=== PATIENT | female | born 1960 | race Caucasian/White ===

== ENCOUNTER 2024-01-19 09:00 | Outpatient (CLI) | payer OTHER, SELFPAY ==
--- NOTE | ~2024-01-19 | XR_ITS ---
XR ribs RT 2V w CXR 2V Ordering provider: Zachary Gan PA-C History: 63 years Female with . R07.81 - Pleurodynia . Comparison: February 05, 2016 FINDINGS: MEDIASTINUM: The cardiac silhouette is not enlarged. LUNGS: No infiltrates, effusions or pneumothorax. OTHER: No free air under the diaphragm. IMPRESSION: No acute cardiopulmonary pathology. Reviewed, dictated and finalized at location A.
== END 2024-01-19 09:01 ==
LOC: MICIMG 09:02
PROVIDERS: PCP Physician Assistant; Visit Provider Physician Assistant
DX: R07.81 Pleurodynia (principal)
CPT/HCPCS: 71046; 71100

== ENCOUNTER 2024-10-04 20:14 | Emergency (ER) | payer OTHER, SELFPAY ==
--- NOTE | ~2024-10-04 | XR_ITS ---
EXAMINATION: XR chest 1V portable Exam Date/Time: 10/04/2024 21:25 HOME SERVICE DEMONSTRATOR HISTORY: cough Comparison: 01/19/2024. RESULT: Lines, tubes, and devices: None. Lungs and pleura: Clear. Cardiomediastinal silhouette: Stable. Other: No acute osseous or upper abdominal finding. IMPRESSION: No acute cardiopulmonary process. Reviewed, dictated and finalized at location K. SERVICE DEMONSTRATOR
--- OUTSIDE RECORDS SUMMARY | 2024-10-04 20:16 | XMS_ITS | Patient Health Summary ---
Author Organization [facility] Address [address] [place] [address] Care Team Providers Care Trumpet Player Name Role Phone Leon Hanna MD Primary Care Provider [phone] Note from [facility],non-owned Affiliates and Associated Physician Practices is amultiple site organization consisting of ambulatory clinics and hospital sitesin [place], [place], [place] and [place]. This disclosure is being madepursuant to the Care Everywhere program and may not contain all information available regarding this patient. Last updated 18.[facility] Social History Tobacco Use Types Packs/Day Years Used Date Smoking Tobacco: Never Assessed Sex and Gender Information Value Date Recorded Sex Assigned at Not on file Gender Identity Not on file Sexual Orientation Not on file Procedures * DERMATOPATHOLOGY(Performed 07/07/2023) Results * DERMATOPATHOLOGY (07/07/2023 12:00 AM LINKING MACHINE OPERATOR) Case Report Dermatopathology Report Case: [id number] Authorizing Provider: Jose Manuel Zepeda MD Collected: 07/07/2023 12:00 AM Ordering Location: [facility] DermPath Lab Received: 07/12/2023 08:20 AM Pathologist: Bhavani Zarco MD Specimen: Skin, left lower lateral leg 3 4:13 PM [facility] DERMATOPATHOLOGY LABORATORY Final Diagnosis Specimen A. SKIN, left lower lateral leg: PSORIASIFORM DERMATITIS (L44.8) (see microscopic description and comment) 3 4:13 PM [facility] DERMATOPATHOLOGY LABORATORY Clinical History R/O SCC, BCC, Lizarraga's 3 4:13 PM [facility] DERMATOPATHOLOGY LABORATORY Gross Description Specimen A: Received is one formalin filled container labeled with the patient's name and designated left lower lateral leg. The specimen consists of a shave biopsy measuring 62w47m1 mm. Jar 0. 3 4:13 PM [facility] DERMATOPATHOLOGY LABORATORY Microscopic Description Specimen A. SKIN, left lower lateral leg: There is psoriasiform hyperplasia of the epidermis with focal parakeratosis and spongiosis. There is a superficial, mainly lymphohistiocytic inflammatory infiltrate. Grocott's methenamine silver (GMS) stain fails to highlight fungal elements in the available sections. COMMENT: The histological differential diagnosis includes early / partially treated psoriasis and a chronic eczematous dermatitis. 3 4:13 PM [facility] DERMATOPATHOLOGY LABORATORY Disclaimer An external and internal positive and negative controls are appropriate for the histochemical, immunohistochemical and immunofluorescence stain(s) in this case (if any), except where stated explicitly. The performance characteristics of the stain(s) cited in this report were developed and its performance characteristic determined by the Dermatopathology Laboratory at [facility], directed by Dr. Kai Zarco. These tests need not be, and therefore are not, approved by the [place] Food and Drug Administration. The tests are used for clinical purposes. Billing Codes Specimen Charges Stain Charges 26012 1 39164 1 3 4:13 PM [facility] DERMATOPATHOLOGY LABORATORY Embedded Images 3 4:13 PM [facility] DERMATOPATHOLOGY LABORATORY Pathology/Cytolog y TISSUE SPECIMEN FROM SKIN / Unknown 07/07/2023 07/12/2023 8:20 AM LINKING MACHINE OPERATOR Jose Manuel Zepeda MD LAB - PATHOLOGY/CYTO LOGY ORDERABLES DERMATOPATHOLOGY LABORATORY [facility] - Department of Dermatology [facility] Medicine [address] [place] [address], [address] [phone] Care Teams Trumpet Player Relationship Specialty Start Date End Date Leon Hanna MD [address] [place] [address] PCP - General 09/16/18
--- OUTSIDE RECORDS SUMMARY | 2024-10-04 20:16 | XMS_ITS | Clinical Summary ---
Author Organization [facility] Address [address] [place] [address] Care Team Providers Care Marine Surveyor Name Role Phone Unavailable Primary Care Provider Unavailabl e Social History Tobacco Use Types Packs/Day Years Used Date Smoking Tobacco: Never Assessed Comments Unknown Sex and Gender Information Value Date Recorded Sex Assigned at Not on file Legal Sex Female 7:29 PM CDT Gender Identity Not on file Sexual Orientation Not on file Plan of Treatment Health Maintenance Due Date Last Done Comments Cervical Cancer Screening Pa p Smear (Age 30 to 64) Every 3 Years 1962 Colorectal Cancer Screening Colonoscopy (10 Years) 1962 Annual Physical 1965 Hepatitis C 1980 DTaP, Tdap and Td Vaccines ( 1 - Tdap) 1981 Cervical Cancer Screening Pa p with HPV Testing (Age 30 to 64) Every 5 Years 1992 Cervical Cancer Screening with HPV 1992 Mammogram Screening 2002 Zoster Vaccines (1 of 2) 2012 COVID-19 Vaccine (2023-2 5 season) 2024 Influenza Adult (#1) 2024 RSV Immunization or 60+ Years (1 - 1-dose 75+ series) 2037 Meningococcal B Vaccine Aged Out No l onger eligible based on patient's age to complete this topic Meningococcal Vaccine Aged Out No cinthya den eligible based on patient's age to complete this topic Pneumococcal Vaccine: Pediat rics (0 to 5 Years) and At-Risk Patients (6 to 64 Years) Aged Out No longer eligible b ased on patient's age to complete this topic RSV Immunizations Under 20 Months Aged Out No longer eligible based on patient's age to complete this topic
--- OUTSIDE RECORDS SUMMARY | 2024-10-04 20:16 | XMS_ITS | Encounter Summary ---
Author Organization [facility] Address [address] [place] [address] Care Team Providers Care Burr Bench Operator Name Role Phone Leon Hanna MD Primary Care Provider [phone] Encounter Details Date Type Department Care Team (Late st Contact Info) Description 07/12/2023 Lab Requisition [facility] - DermPath Lab [address] [place] [address] Jose Manuel Zepeda MD [address] [place] [address] Social History Tobacco Use Types Packs/Day Years Used Date Smoking Tobacco: Never Assessed Sex and Gender Information Value Date Recorded Sex Assigned at Not on file Gender Identity Not on file Sexual Orientation Not on file documented as of this encounter Plan of Treatment Not on file documented as of this encounter Procedures Procedure Name Priority Date/Time Associated Diagnosis Comments DERMATOPATHOLOGY Routine 07/07/2023 12:0 0 AM ASBESTOS BRAKE LINING FINISHER HELPER documented in this encounter Results * DERMATOPATHOLOGY (07/07/2023 12:00 AM ASBESTOS BRAKE LINING FINISHER HELPER) Case Report Dermatopathology Report Case: [id number] Authorizing Provider: Jose Manuel Zepeda MD Collected: 07/07/2023 12:00 AM Ordering Location: [facility] DermPath Lab Received: 07/12/2023 08:20 AM Pathologist: Bhavani Zarco MD Specimen: Skin, left lower lateral leg 3 4:13 PM [facility] FINISH[facility] HELPER DERMATOPATHOLOGY LABORATORY Final Diagnosis Specimen A. SKIN, left lower lateral leg: PSORIASIFORM DERMATITIS (L44.8) (see microscopic description and comment) 3 4:13 PM [facility] [employer] LIN[employer] FINISHER HELPER DERMATOPATHOLOGY LABORATORY Clinical History R/O SCC, BCC, Lizarraga's 3 4:13 PM [facility] DERMATOPATHOLOGY LABORATORY Gross Description Specimen A: Received is one formalin filled container labeled with the patient's name and designated left lower lateral leg. The specimen consists of a shave biopsy measuring 26k03x2 mm. Jar 0. 3 4:13 PM [facility] DERMATOPATHOLOGY LABORATORY Microscopic Description Specimen A. SKIN, [...] a chronic eczematous dermatitis. 3 4:13 PM [facility] DERMATOPATHOLOGY LABORATORY Disclaimer An external and internal positive and negative controls are appropriate for the histochemical, immunohistochemical and immunofluorescence stain(s) in this case (if any), except where stated explicitly. The performance characteristics of the stain(s) cited in this report were developed and its performance characteristic determined by the Dermatopathology Laboratory at [facility], directed by Dr. Kai Zarco. These tests need not be, and therefore are not, approved by the [place] Food and Drug Administration. The tests are used for clinical purposes. Billing Codes Specimen Charges Stain Charges 18503 1 65218 1 3 4:13 PM [employer] BRAKE LINING FINISHER HELPER DERMATOPATHOLOGY LABORATORY Embedded Images 3 4:13 PM [facility] DERMATOPATHOLOGY LABORATORY Pathology/Cytolog y TISSUE SPECIMEN FROM SKIN / Unknown 07/07/2023 07/12/2023 8:20 AM ASBESTOS BRAKE LINING FINISHER HELPER Jose Manuel Zepeda MD LAB - PATHOLOGY/CYTO LOGY ORDERABLES DERMATOPATHOLOGY LABORATORY [facility] - Department of Dermatology [address], [address] [phone] documented in this encounter Visit Diagnoses Not on filedocumented in this encounter Care Teams Burr Bench Operator Relationship Specialty Start Date End Date Leon Hanna MD [address] [place] [phone] PCP - General 09/16/18 documented as of this encounter
--- OUTSIDE RECORDS SUMMARY | 2024-10-04 20:16 | XMS_ITS | Referral Summary ---
Author Organization [facility] Address [address] [place] [address] [place] [address] Care Team Providers Care Program Services Assistant Name Role Phone Leon Hanna MD Primary Care Provider [phone] Source Comments [facility],non-owned Affiliates and Associated Physician Practices is amultiple site organization consisting of ambulatory clinics and hospital sitesin [place], [place], [place] and [place]. This disclosure is being madepursuant to the Care Everywhere program and may not contain all information available regarding this patient. Last updated 18.[facility] Social History Tobacco Use Types Packs/Day Years Used Date Smoking Tobacco: Never Assessed Sex and Gender Information Value Date Recorded Sex Assigned at Not on file Gender Identity Not on file Sexual Orientation Not on file Plan of Treatment Not on file Care Teams Program Services Assistant Relationship Specialty Start Date End Date Leon Hanna MD [address] [place] [address] PCP - General 09/16/18
--- OUTSIDE RECORDS SUMMARY | 2024-10-04 20:16 | XMS_ITS | Clinical Summary ---
Author Organization [facility] Address [address] [place] [address] Care Team Providers Care Html Web Developer Name Role Phone Leon Hanna MD Primary Care Provider [phone] Source Comments [facility],non-owned Affiliates and Associated Physician Practices is amultiple site organization consisting of ambulatory clinics and hospital sitesin [place], [place], [place] and [place]. This disclosure is being madepursuant to the Care Everywhere program and may not contain all information available regarding this patient. Last updated 18.[facility] Social History Tobacco Use Types Packs/Day Years Used Date Smoking Tobacco: Never Assessed Sex and Gender Information Value Date Recorded Sex Assigned at Not on file Gender Identity Not on file Sexual Orientation Not on file Plan of Treatment Health Maintenance Due Date Last Done Comments COLOGUARD (AGES 45-75) - COL ON CA SCREENING 1962 COLON MONITORING 1962 COLONOSCOPY - COLON CA SCREENING 1962 CT COLONOGRAPHY - COLON CA SCREENING 1962 Colorectal Cancer Screening 1962 FIT - COLON CA SCREENING 1962 FLEX SIG - COLON CA SCREENING 1962 LIPID TESTING 1962 MAMMOGRAM 1962 PAP SMEAR 1962 HIV SCREENING 1977 HEPATITIS C SCREENING 11/05/1980 DTAP/TDAP/TD VACCINES (1 - Tdap) 1981 PNEUMOCOCCAL VACCINE 50+ (1 of 1 - PCV) 2012 ZOSTER VACCINE (1 of 2) 2012 COVID-19 VACCINE ( - 2023-2 5 season) 2024 INFLUENZA VACCINE (#1) 2024 DEPRESSION SCREENING 08/09/2024 Respiratory Syncytial Virus (RSV) Vaccine Pt: or over 60 yrs (1 - 1-dose 75+ series) 2037 HEPATITIS B VACCINE Aged Out No longe r eligible based on patient's age to complete this topic HIB VACCINE Aged Out No longer eligi ble based on patient's age to complete this topic HPV VACCINE Aged Out No longer eligi ble based on patient's age to complete this topic MENINGOCOCCAL (Group B) VACCINE Aged Out No longer eligible based on patient's age to complete this topic MENINGOCOCCAL VACCINE Aged Out No cinthya den eligible based on patient's age to complete this topic PNEUMOCOCCAL VACCINE Aged Out No long er eligible based on patient's age to complete this topic Care Teams Html Web Developer Relationship Specialty Start Date End Date Leon Hanna MD [address] [place] [address] PCP - General 09/16/18
[2024-10-04 20:23] VITALS: BP 92/59; PULSE 113; RESP 18; TEMP 37; O2SAT 96
[2024-10-04 21:18] VITALS: O2SAT 100
[2024-10-04 21:19] VITALS: BP 101/71; PULSE 105; RESP 17; TEMP 37.4; O2SAT 100
--- NOTE | 2024-10-04 21:24 | ED.URI ---
HPI - URI/Sore Throat General Chief Complaint: Upper Respiratory Infection Stated Complaint: flu symptoms Time Seen by Provider: 10/04/24 21:09 Source: patient Mode of arrival: ambulatory Limitations: no limitations History of Present Illness HPI Narrative: This is a 63-year-old female who presents to the ED for chief complaint of flu-like illness over the past 4-5 days. Patient reports increasing cough that is nonproductive. States that her main complaint is being very generally weak and fatigued. Denies any known sick contacts but states that a week ago they or in [place] the [place]. Denies fevers, chills, chest pain, shortness of breath, abdominal pain, nausea, vomiting, diarrhea, sore throat, neck pain, headache. Related Data Allergies Allergy/AdvReac Type Severity Reaction Status Date / Time Penicillins Allergy Unknown Rash Verified 08/10/23 08:51 Sulfa (Sulfonamide Allergy Unknown Rash Verified 08/10/23 08:51 Antibiotics) Review of Systems Review of Systems: All systems as dictated in [facility] Past Medical History Medical History Smoking Wellness examination Family History Family History Sibling Hypertension Social History Social History Smoking packs per day: 0.5 Smoking cigarettes per day: 10.0 Years smoked: 25 Smoking pack-years: 12.50 Smoking status: Current every day smoker Tobacco type: cigarettes Alcohol intake: current Alcohol use details: social drinker Substance use: never Substance use type: does not use Living arrangements: with family Occupation/Education: occupation Gender identity (if verbalized by the patient): Female Sexual Orientation (if Verbalized by the Patient): Straight or Heterosexual Spiritual care concerns: No Exam Narrative: GENERAL: Well-appearing, well-nourished, and in no acute distress. HEAD: Normocephalic, atraumatic. EYES: PERRLA and EOMI. ENT: Nares clear, no rhinorrhea or epistaxis. Mucous membranes moist. Oropharynx without tonsillar hypertrophy exudate or other lesions. NECK: Supple. No adenopathy or masses. CHEST: No respiratory distress. Clear to auscultation. No wheezes rales or rhonchi HEART: Regular rate and rhythm. No murmur heard. Normal peripheral pulses. ABDOMEN: Soft, nontender, nondistended, normal active bowel sounds. MSK: Normal range of motion. No edema. SKIN: Warm, dry, no rash. NEURO: Alert and oriented x4. No focal deficits. PSYCH: Normal mood and affect. Course Vital Signs Vital signs: Vital Signs Temperature 98.6 F 10/04/24 20:23 Pulse Rate 113 H 10/04/24 20:23 Respiratory Rate 18 10/04/24 20:23 Blood Pressure 92/59 L 10/04/24 20:23 Pulse Oximetry 96 10/04/24 20:23 Oxygen Delivery Room Air 10/04/24 20:23 Temperature 99.4 F 10/04/24 21:19 Pulse Rate 105 H 10/04/24 21:19 Respiratory Rate 17 10/04/24 21:19 Blood Pressure 101/71 10/04/24 21:19 Pulse Oximetry 100 10/04/24 21:19 Oxygen Delivery Room Air 10/04/24 21:18 MDM - URI/Sore Throat MDM Narrative Medical decision making narrative: This is a 63-year-old female who presents to the ED for chief complaint of flu-like symptoms and cough for the past 4-5 days. Vitals show mild tachycardia but otherwise normal. Mildly elevated temperature of 99.4?. Viral swabs positive for influenza. Lab work unremarkable. Patient is out of the window for any kind of benefit with Tamiflu. Supportive measures discussed for discharge home. Patient will be discharged in stable condition. Supportive measures discussed and return precautions given. Patient is understanding and agreeable with plan for discharge with PCP follow-up. Lab Data 10/04/24 21:30 10/04/24 21:30 Labs: Lab Results 10/04/24 10/04/24 Range/Units 21:16 21:30 WBC 4.4 L (4.5-10.0) K/mm3 RBC 4.21 (4.2-5.4) M/mm3 Hgb 13.7 (12.0-15.0) g/dL Hct 40.0 (37.0-47.0) % MCV 95.0 (80-100) fl MCH 32.5 (26-34) pg MCHC 34.3 (32-36) g/dl RDW 12.3 (11.5-14.5) % Plt Count 112 L (150-375) k/mm3 MPV 10.2 (7.4-10.4) fl Immature Gran % (Auto) 0.5 (0-0.5) % Neut % (Auto) 79.9 H (45.5-73.1) % Lymph % (Auto) 10.4 L (18.3-44.2) % [place] % (Auto) 9.0 H (2.6-8.5) % Eos % (Auto) 0.0 (0-4.4) % Baso % (Auto) 0.2 (0.2-1.2) % Lymph # (Auto) 0.46 L (0.9-3.2) K/mm3 [place] # (Auto) 0.4 (0.1-0.6) K/mm3 Eos # (Auto) 0.0 (0-0.3) K/mm3 Baso # (Auto) 0.0 (0.0-0.1) K/mm3 Abs Immat Gran (auto) 0.02 (0.00-0.031) K/mm3 Absolute Neuts (auto) 3.5 (1.3-6.7) K/mm3 Absolute Nucleated RBC 0.000 (0.0-0.012) K/mm3 Nucleated RBC % 0.0 (0.0-0.2) % % Immature Plt Fraction 3.0 (0.9-11.2) % Sodium Pending Potassium Pending Chloride Pending Carbon Dioxide Pending Anion Gap Pending BUN Pending Creatinine Pending Estim Creat Clear Calc Pending Estimated GFR Pending Glucose Pending Calcium Pending Total Bilirubin Pending AST Pending ALT Pending Alkaline Phosphatase Pending Total Protein Pending Albumin Pending Influenza A (RT-PCR) Pending Influenza B (RT-PCR) Pending RSV (RT-PCR) Pending SARS-CoV-2 RNA (RT-PCR) Pending Discharge Plan Discharge Clinical Impression: Influenza Patient Disposition: Home, Self-Care Condition: Stable Instructions: Antibiotic Form Additional Instructions: Your exam and imaging today are reassuring overall. Your swab is positive for influenza. There is no specific medication that will be of benefit other than regular Tylenol, ibuprofen for aches and fevers. You can switch from Mucinex to Tessalon Perles for cough. Should self resolve in the next 3-4 days. If you have any new or worsening symptoms please return to the ER for further evaluation. Patient Language: Portuguese Prescriptions: New benzonatate 100 mg capsule 100 mg PO BID PRN (Reason: cough) Qty: 30 0RF No Action albuterol sulfate [Ventolin HFA] 90 mcg/actuation HFA aerosol inhaler 2 inh INHALATION Q4H PRN (Reason: shortness of breath or wheezing) Qty: 8.5 2RF levothyroxine 75 mcg tablet 75 mcg PO DAILY Qty: 90 0RF Follow-up/Referrals: Zachary Gan PA-C [Primary Care Provider] - Time of Disposition: 21:59
--- OUTSIDE RECORDS SUMMARY | 2024-10-04 21:33 | XMS_ITS | Referral Summary ---
Author Organization [facility] Address [address] [place] [address] [place] [address] Care Team Providers Care Small Battery Plate Assembler Name Role Phone Leon Hanna MD Primary Care Provider [phone] Source Comments [facility],non-owned Affiliates and Associated Physician Practices is amultiple site organization consisting of ambulatory clinics and hospital sitesin [place], [place], [place] and [place]. This disclosure is being madepursuant to the Care Everywhere program and may not contain all information available regarding this patient. Last updated 18.[facility] Social History Tobacco Use Types Packs/Day Years Used Date Smoking Tobacco: Never Assessed Sex and Gender Information Value Date Recorded Sex Assigned at Not on file Gender Identity Not on file Sexual Orientation Not on file Plan of Treatment Not on file Care Teams Small Battery Plate Assembler Relationship Specialty Start Date End Date Leon Hanna MD [address] [place] [phone] PCP - General 09/16/18
--- OUTSIDE RECORDS SUMMARY | 2024-10-04 21:33 | XMS_ITS | Patient Health Summary ---
Author Organization [facility] Address [address] [place] [address] Care Team Providers Care Carpet Weaver Name Role Phone Leon Hanna MD Primary Care Provider [phone] Note from [facility],non-owned Affiliates and Associated Physician Practices is amultiple site organization consisting of ambulatory clinics and hospital sitesin [place], [place], [place] and [place]. This disclosure is being madepursuant to the Care Everywhere program and may not contain all information available regarding this patient. Last updated 18.[facility] Social History Tobacco Use Types Packs/Day Years Used Date Smoking Tobacco: Never Assessed Sex and Gender Information Value Date Recorded Sex Assigned at Not on file Gender Identity Not on file Sexual Orientation Not on file Procedures * DERMATOPATHOLOGY(Performed 07/07/2023) Results * DERMATOPATHOLOGY (07/07/2023 12:00 AM MACHINE OPERATORS) Case Report Dermatopathology Report Case: [id number] Authorizing Provider: Jose Manuel Zepeda MD Collected: 07/07/2023 12:00 AM Ordering Location: [facility] DermPath Lab Received: 07/12/2023 08:20 AM Pathologist: Bhavani Zarco MD Specimen: Skin, left lower lateral leg 3 4:[address] [facility] DERMATOPATHOLOGY LABORATORY Final Diagnosis Specimen A. SKIN, left lower lateral leg: PSORIASIFORM DERMATITIS (L44.8) (see microscopic description and comment) 3 4:[address] [facility] DERMATOPATHOLOGY LABORATORY Clinical History R/O SCC, BCC, Lizarraga's 3 4:[address] [facility] DERMATOPATHOLOGY LABORATORY Gross Description Specimen A: Received is one formalin filled container labeled with the patient's name and designated left lower lateral leg. The specimen consists of a shave biopsy measuring 49a95t2 mm. Jar 0. 3 4:[address] [facility] DERMATOPATHOLOGY LABORATORY Microscopic Description Specimen [...] a chronic eczematous dermatitis. 3 4:[address] [facility] DERMATOPATHOLOGY LABORATORY Disclaimer An external and internal positive and negative controls are appropriate for the histochemical, immunohistochemical and immunofluorescence stain(s) in this case (if any), except where stated explicitly. The performance characteristics of the stain(s) cited in this report were developed and its performance characteristic determined by the Dermatopathology Laboratory at [facility], directed by Dr. Kai Zarco. These tests need not be, and therefore are not, approved by the [place] Food and Drug Administration. The tests are used for clinical purposes. Billing Codes Specimen Charges Stain Charges 44321 1 94521 1 3 4:[address] [facility] DERMATOPATHOLOGY LABORATORY Embedded Images 3 4:[address] [facility] DERMATOPATHOLOGY LABORATORY Pathology/Cytolog y TISSUE SPECIMEN FROM SKIN / Unknown 07/07/2023 07/12/2023 8:20 AM MACHINE OPERATORS Jose Manuel Zepeda MD LAB - PATHOLOGY/CYTO LOGY ORDERABLES DERMATOPATHOLOGY LABORATORY [facility] - Department of Dermatology [facility] Medicine [address] [place] [address], [address] [phone] Care Teams Carpet Weaver Relationship Specialty Start Date End Date Leon Hanna MD [address] [place] [phone] PCP - General 09/16/18
--- OUTSIDE RECORDS SUMMARY | 2024-10-04 21:33 | XMS_ITS | Encounter Summary ---
Author Organization [facility] Address [address] [place] [address] Care Team Providers Care Powertrain Control Systems Engineer Name Role Phone Leon Hanna MD Primary Care Provider Encounter Details Date Type Department Care Team (Late st Contact Info) Description 07/12/2023 Lab Requisition [facility] - DermPath Lab [address] [place] [address] Jose Manuel Zepeda MD [address] [place] [address] Social History Tobacco Use Types [...] Comments DERMATOPATHOLOGY Routine 07/07/2023 12:0 0 AM CASING GRADER documented in this encounter Results * DERMATOPATHOLOGY (07/07/2023 12:00 AM CASING GRADER) Case Report Dermatopathology Report Case: [id number] Authorizing Provider: Jose Manuel Zepeda MD Collected: 07/07/2023 12:00 AM Ordering Location: [facility] DermPath Lab Received: 07/12/2023 08:20 AM Pathologist: Bhavani Zarco MD Specimen: Skin, left lower lateral leg 3 4:13 PM CASING GRADER DERMATOPATHOLOGY LABORATORY Final Diagnosis Specimen A. SKIN, left lower lateral leg: PSORIASIFORM DERMATITIS (L44.8) (see microscopic description and comment) 3 4:13 PM CASING GRADER DERMATOPATHOLOGY LABORATORY Clinical History R/O SCC, BCC, Lizarraga's 3 4:13 PM [facility] DERMATOPATHOLOGY LABORATORY Gross Description Specimen A: Received is one formalin filled container labeled with the patient's name and designated left lower lateral leg. The specimen consists of a shave biopsy measuring [id number] mm. Jar 0. 3 4:13 PM [facility] DERMATOPATHOLOGY LABORATORY Microscopic Description Specimen [...] a chronic eczematous dermatitis. 3 4:13 PM [facility] DERMATOPATHOLOGY LABORATORY Disclaimer An external and internal positive and negative controls are appropriate for the histochemical, immunohistochemical and immunofluorescence stain(s) in this case (if any), except where stated explicitly. The performance characteristics of the stain(s) cited in this report were developed and its performance characteristic determined by the Dermatopathology Laboratory at [facility], directed by Dr. Kai Zarco. These tests need not be, and therefore are not, approved by the [place] Food and Drug Administration. The tests are used for clinical purposes. Billing Codes Specimen Charges Stain Charges 54433 1 19776 1 3 4:13 PM CASING GRADER DERMATOPATHOLOGY LABORATORY Embedded Images 3 4:13 PM [facility] DERMATOPATHOLOGY LABORATORY Pathology/Cytolog y TISSUE SPECIMEN FROM SKIN / Unknown 07/07/2023 07/12/2023 8:20 AM CASING GRADER Jose Manuel Zepeda MD LAB - PATHOLOGY/CYTO LOGY ORDERABLES DERMATOPATHOLOGY LABORATORY [facility] - Department of Dermatology [address], [address] [phone] documented in this encounter Visit Diagnoses Not on filedocumented in this encounter Care Teams Powertrain Control Systems Engineer Relationship Specialty Start Date End Date Leon Hanna MD [address] [place] [phone] PCP - General 09/16/18 documented as of this encounter
--- OUTSIDE RECORDS SUMMARY | 2024-10-04 21:33 | XMS_ITS | Clinical Summary ---
Author Organization [facility] Address [address] [place] [address] Care Team Providers Care Vegetable Preparer Name Role Phone Leon Hanna MD Primary Care Provider [phone] Source Comments [facility],non-owned Affiliates and Associated Physician Practices is amultiple site organization consisting of ambulatory clinics and hospital sitesin [place], [place], [place] and [place]. This disclosure is being madepursuant to the Care Everywhere program and may not contain all information available regarding this patient. Last updated 18.[facility] Social History Tobacco Use Types Packs/Day Years [...] age to complete this topic Care Teams Vegetable Preparer Relationship Specialty Start Date End Date Leon Hanna MD [address] [place] [address] PCP - General 09/16/18
[2024-10-04 21:38] LABS: Basophils Percent Auto 0.2 % (0.2-1.2); Hemoglobin 13.7 g/dL (12.0-15.0); Immature Granulocyte Absolute 0.02 K/mm3 (0.00-0.031); Immature Granulocyte Percent A 0.5 % (0-0.5); Lymphocytes Absolute Auto 0.46 K/mm3 (0.9-3.2); Lymphocytes Percent Auto 10.4 % (18.3-44.2); Mean Corpuscular HGB Conc 34.3 g/dl (32-36); Mean Corpuscular Hemoglobin 32.5 pg (26-34); Mean Platelet Volume 10.2 fl (7.4-10.4); Monocytes Absolute Auto 0.4 K/mm3 (0.1-0.6); Neutrophils Absolute Auto 3.5 K/mm3 (1.3-6.7); Neutrophils Percent Auto 79.9 % (45.5-73.1); Platelet Count Result 112 k/mm3 (150-375); Red Blood Count 4.21 M/mm3 (4.2-5.4); Red Cell Distribution Width 12.3 % (11.5-14.5); White Blood Count 4.4 K/mm3 (4.5-10.0)
[2024-10-04 21:46] LABS: Alanine Aminotransferase 13 U/L (6-35); Albumin Level 3.9 g/dL (3.5-5.1); Alkaline Phosphatase 61 U/L (38-126); Anion Gap 10 mmol/L (4-12); Aspartate Amino Transferase 36 U/L (14-36); Bilirubin,Total 0.5 mg/dL (0.2-1.3); Blood Urea Nitrogen 14 mg/dL (7-17); Calcium 8.5 mg/dL (8.4-10.2); Carbon Dioxide 24 mmol/L (22-30); Chloride 97 mmol/L (98-107); Estimated Glomerular Filt Rate > 60; Glucose 118 mg/dL (65-110); Potassium 4.1 mmol/L (3.4-5.0); Sodium 131 mmol/L (137-145)
[2024-10-04 21:56] LABS: Influenza A QL RT-PCR Positive (Negative); Influenza B QL RT-PCR Negative (Negative); RSV RNA, RT-PCR Negative (Negative); SARS-CoV-2 RNA PCR Negative (Negative)
== END 2024-10-04 22:16 | disposition home or self-care (01) ==
PROVIDERS: Emergency Provider Physician Assistant; PCP Physician Assistant
DX: J11.1 Influenza due to unidentified influenza virus with other respiratory manifestations (principal); F17.210 Nicotine dependence, cigarettes, uncomplicated; Z20.822 Contact with and (suspected) exposure to COVID-19
CPT/HCPCS: 36415; 71045; 80053; 85025; 85055; 87637; 99283

== ENCOUNTER 2025-05-26 21:06 | Emergency (ER) | payer OTHER, SELFPAY ==
--- NOTE | ~2025-05-26 | XR_ITS ---
Examination: XR chest 1V portable Clinical History: syncopal Comparison: 10/04/2024 Technique: Portable AP Findings: Heart size normal. Lungs clear. No acute bony abnormality. IMPRESSION: 1. No acute cardiopulmonary findings given portable technique. Reviewed, dictated and finalized at location R.
[2025-05-26 21:09] VITALS: BP 106/63; PULSE 69; RESP 13; TEMP 36.4; O2SAT 97
--- NOTE | 2025-05-26 21:18 | ECG_ITS ---
Test Date: 2025-05-26 21:22:19 Measurements Intervals [place] Rate: 67 P: 51 WA: 162 QRS: 59 QRSD: 78 T: 30 QT: 393 QTc: 417 Interpretive Statements SINUS RHYTHM DELAYED PRECORDIAL R/S TRANSITION NONSPECIFIC T-WAVE ABNORMALITY- ANT/INF LEADS BASELINE ARTIFACT- I, II, III, AVR, AVL, AVF, V1-V2 BORDERLINE ECG No previous ECG available for comparison Electronically Signed On 05-27-2025 08:35:14 CDT by Willi Bird D.O.
[2025-05-26 21:20] VITALS: PULSE 64
[2025-05-26 21:37] LABS: Hematocrit 37.0 % (37.0-47.0); Hemoglobin 12.0 g/dL (12.0-15.0); Immature Granulocyte Percent A 0.2 % (0-0.5); Lymphocytes Absolute Auto 1.97 K/mm3 (0.9-3.2); Mean Corpuscular HGB Conc 32.4 g/dl (32-36); Mean Corpuscular Hemoglobin 31.7 pg (26-34); Mean Corpuscular Volume 97.6 fl (80-100); Nucleated Red Blood Cells Absolute Auto 0.000 K/mm3 (0.0-0.012); Nucleated Red Blood Cells Perc 0.0 % (0.0-0.2); Platelet Count Result 156 k/mm3 (150-375); Red Blood Count 3.79 M/mm3 (4.2-5.4); White Blood Count 6.1 K/mm3 (4.5-10.0)
[2025-05-26 21:47] LABS: Alanine Aminotransferase 11 U/L (6-35); Albumin Level 3.9 g/dL (3.5-5.1); Alkaline Phosphatase 61 U/L (38-126); Anion Gap 7 mmol/L (4-12); Aspartate Amino Transferase 29 U/L (14-36); Bilirubin,Total 0.2 mg/dL (0.2-1.3); Blood Urea Nitrogen 14 mg/dL (7-17); Calcium 8.6 mg/dL (8.4-10.2); Carbon Dioxide 28 mmol/L (22-30); Chloride 102 mmol/L (98-107); Estimated CRCL calculation 46 ml/min; Estimated Glomerular Filt Rate 59; Glucose 100 mg/dL (65-110); Potassium 3.7 mmol/L (3.4-5.0); Sodium 137 mmol/L (137-145); Total Protein 6.5 g/dL (6.3-8.2)
[2025-05-26 22:13] VITALS: BP 93/57; PULSE 68; RESP 21; O2SAT 97
--- OUTSIDE RECORDS SUMMARY | 2025-05-26 22:51 | XMS_ITS | Encounter Summary ---
Author Organization [facility] Address [address] [place] [address] Care Team Providers Care Crossing Flagman Name Role Phone Leon Hanna MD Primary Care Provider [phone] Encounter Details Date Type Department Care Team (Late st Contact Info) Description 07/12/2023 Lab Requisition [facility] - DermPath Lab [address] [place] [address] Jose Manuel Zepeda MD [address] [place] [address] Social History Tobacco Use Types Packs/Day Years Used Date Smoking Tobacco: Never Assessed Comments Unknown Sex and Gender Information Value Date Recorded Sex Assigned at Not on file Legal Sex Female 8:18 AM SALES AND MARKETING ASSOCIATE Gender Identity Not on file Sexual Orientation Not on file documented as of this encounter Plan of Treatment Not on file documented as of this encounter Procedures Procedure Name Priority Date/Time Associated Diagnosis Comments DERMATOPATHOLOGY Routine 07/07/2023 12:0 0 AM SALES AND MARKETING ASSOCIATE documented in this encounter Results * DERMATOPATHOLOGY (07/07/2023 12:00 AM SALES AND MARKETING ASSOCIATE) Case Report Dermatopathology Report Case: [id number] Authorizing Provider: Jose Manuel Zepeda MD Collected: 07/07/2023 12:00 AM Ordering Location: [facility] Derm[facility] Lab Received: 07/12/2023 08:20 AM Pathologist: Bhavani Zarco MD Specimen: Skin, left lower lateral leg 3 4:13 PM SALES AND MARKETING ASSOCIATE DERMATOPATHOLOGY LABORATORY Final Diagnosis Specimen A. SKIN, left lower lateral leg: PSORIASIFORM DERMATITIS (L44.8) (see microscopic description and comment) 3 4:13 PM SALES AND MARKETING ASSOCIATE DERMATOPATHOLOGY LABORATORY at [address] [facility] Clinical History R/O SCC, BCC, Lizarraga's 3 4:13 PM [facility] DERMATOPATHOLOGY LABORATORY Gross Description Specimen A: Received is one formalin filled container labeled with the patient's name and designated left lower lateral leg. The specimen consists of a shave biopsy measuring [id number] mm. Jar 0. 3 4:13 PM [facility] DERMATOPATHOLOGY LABORATORY Microscopic Description Specimen A. SKIN, [...] a chronic eczematous dermatitis. 3 4:13 PM [facility] DERMATOPATHOLOGY LABORATORY Disclaimer An external and internal positive and negative controls are appropriate for the histochemical, immunohistochemical and immunofluorescence stain(s) in this case (if any), except where stated explicitly. The performance characteristics of the stain(s) cited in this report were developed and its performance characteristic determined by the Dermatopathology Laboratory at [facility], directed by Dr. Kai Zarco. These tests need not be, and therefore are not, approved by the [place] Food and Drug Administration. The tests are used for clinical purposes. Billing Codes Specimen Charges Stain Charges 63798 1 04820 1 3 4:13 PM [facility] DERMATOPATHOLOGY LABORATORY Embedded Images 3 4:13 PM [facility] DERMATOPATHOLOGY LABORATORY Pathology/Cytolog y TISSUE SPECIMEN FROM SKIN / Unknown 07/07/2023 07/12/2023 8:20 AM [facility] Jose Manuel Zepeda MD LAB - PATHOLOGY/CYTOLOGY ORD ERABLES Final Result DERMATOPATHOLOGY LABORATORY [facility] - Department of Dermatology [address] [phone] documented in this encounter Visit Diagnoses Not on filedocumented in this encounter Care Teams Crossing Flagman Relationship Specialty Start Date End Date Kopjas, Leon C, MD [address] [place] [address] PCP - General 09/16/18 documented as of this encounter
--- OUTSIDE RECORDS SUMMARY | 2025-05-26 22:51 | XMS_ITS | Clinical Summary ---
Author Organization [facility] Address [address] [place] [address] Care Team Providers Care Tensile Tester Name Role Phone Leon Hanna MD Primary Care Provider [phone] Source Comments [facility],non-owned Affiliates and Associated Physician Practices is amultiple site organization consisting of ambulatory clinics and hospital sitesin [place], [place], [place] and [place]. This disclosure is being madepursuant to the Care Everywhere program and may not contain all information available regarding this patient. Last updated 18.[facility] Social History Tobacco Use Types Packs/Day Years Used Date Smoking Tobacco: Never Assessed Comments Unknown Sex and Gender Information Value Date Recorded Sex Assigned at Not on file Legal Sex Female 8:18 AM EGG SORTER Gender Identity Not on file Sexual Orientation [...] SCREENING 1962 LIPID TESTING 1962 MAMMOGRAM 1962 HIV SCREENING 1977 HEPATITIS C SCREENING 11/05/1980 DTAP/TDAP/TD VACCINES (1 - Tdap) 1981 PAP SMEAR 11/11/1983 PNEUMOCOCCAL VACCINE 50+ (1 of 1 - PCV) 2012 ZOSTER VACCINE (1 of 2) 2012 DEPRESSION SCREENING 08/09/2024 COVID-19 VACCINE (1 - 2023-2 5 season) 2025 INFLUENZA VACCINE (#1) 2025 Respiratory Syncytial Virus (RSV) Vaccine Pt: or [...] to complete this topic MENINGOCOCCAL (Group B) VACC INE SHARED DECISION-MAKING Aged Out No longer eligibl e based on patient's age to complete this topic MENINGOCOCCAL GROUPS A/C/Y/W VACCINE Aged Out No longer eligible b ased on patient's age to complete this topic Insurance Member Subscriber Plan / Payer (Ef fective 2013-Present) Name:Corine Bernstein Relation to Subscriber:Spouse Name:LAM BERNSTEIN Subscriber ID:Not on file Date of :1956 Payer ID:[id number] (NAIC) Type:PPO Address: [place] [phone] Care Teams Tensile Tester Relationship Specialty Start Date End Date Leon Hanna MD [address] [place] [address] PCP - General 09/16/18
[2025-05-26] MEDS: SODIUM CHLORIDE 0.9% IV 1,000 ML 999 ML IV CONT (23:17)
[2025-05-26 23:55] VITALS: BP 117/92; PULSE 71; RESP 13; O2SAT 99
[2025-05-27 00:22] VITALS: BP 103/63; PULSE 67; RESP 18; O2SAT 98
--- NOTE | 2025-05-27 00:36 | ED_ITS ---
HPI - Syncope General Chief Complaint: Syncope Stated Complaint: SYNCOPAL EPISODE Time Seen by Provider: 05/26/25 22:33 Source: patient Mode of arrival: EMS Limitations: no limitations History of Present Illness HPI narrative: 64-year-old with a history of hypothyroidism was brought in from home with a syncopal episode. As per the patient had a nap and woke up to get some water from the kitchen felt lightheaded and passed out for few seconds. He EMS was called her blood sugar was 50 upon their arrival the time she got to the ER she is feeling better. She states that she is eating in the noted 630. She denies having any headache or chest pain or shortness of that MD complaint: almost passed out Onset (ago): hour(s) (1) -: second(s) Prodromal symptoms: none Witnessed: Yes - by Other () Context: getting out of bed Injuries sustained associated with event: none Current symptoms: none Treatments prior to arrival: glucose Related Data Allergies Allergy/AdvReac Type Severity Reaction Status Date / Time Penicillins Allergy Unknown Rash Verified 05/26/25 21:19 Sulfa (Sulfonamide Allergy Unknown Rash Verified 05/26/25 21:19 Antibiotics) Review of Systems 2 Review of Systems: All systems reviewed & are unremarkable except as noted in HPI and below Constitutional: Constitutional: Reports no additional constitutional complaints Eyes: Eyes: Reports no additional eye complaints ENT: Reports system reviewed and no additional complaints, except as documented Cardiovascular: Cardiovascular: Reports no additional cardiovascular complaints Respiratory: Respiratory: Reports no additional respiratory complaints Gastrointestinal: Gastrointestinal: Reports no additional gastrointestinal complaints Genitourinary: Genitourinary: Reports no additional female genitourinary complaints Musculoskeletal: Musculoskeletal: Reports no additional musculoskeletal complaints Neurologic: Reports as per HPI [facility] Past Medical History Medical History Smoking Wellness examination Family History Family History Sibling Hypertension Social History Social History Smoking packs per day: 0.5 Smoking cigarettes per day: 10.0 Years smoked: 25 Smoking pack-years: 12.50 Smoking status: Current every day smoker Tobacco type: cigarettes Alcohol intake: current Alcohol use details: social drinker Substance use: never Substance use type: does not use Living arrangements: with family Occupation/Education: occupation Gender identity (if verbalized by the patient): Female Sexual Orientation (if Verbalized by the Patient): Straight or Heterosexual Spiritual care concerns: No Exam 2 Narrative: GENERAL: Well-appearing, well-nourished, and in no acute distress. HEAD: Normocephalic, atraumatic. EYES: PERRLA and EOMI. ENT: Nares clear, no rhinorrhea or epistaxis. Mucous membranes moist. NECK: Supple. CHEST: Clear to auscultation. No respiratory distress. HEART: Regular rate and rhythm. No murmur heard. Normal peripheral pulses. ABDOMEN: Soft, nontender, nondistended, normal active bowel sounds. EXTREMITIES: Normal range of motion. No edema. SKIN: Warm, dry, no rash. NEURO: No focal deficits. Alert and oriented x3. PSYCH: Normal mood and affect. Course Course Emergency Course: Patient was given L of normal saline her blood pressure improved I did reviewed her lab work with her and her . She is feeling much better. I did inform her about the urinalysis. She feels much better she wants to go home I recommended her again to follow up with her primary doctor Vital Signs Vital signs: Vital Signs Temperature 36.4 C L 05/26/25 21:09 Pulse Rate 69 05/26/25 21:09 Respiratory Rate 13 05/26/25 21:09 Blood Pressure 106/63 05/26/25 21:09 Pulse Oximetry 97 05/26/25 21:09 Oxygen Delivery Room Air 05/26/25 21:09 Temperature 36.4 C L 05/26/25 21:09 Pulse Rate 67 05/27/25 00:22 Respiratory Rate 18 05/27/25 00:22 Blood Pressure 103/63 05/27/25 00:22 Pulse Oximetry 98 05/27/25 00:22 Oxygen Delivery Room Air 05/26/25 21:09 MDM - Syncope Differential Diagnosis Differential diagnosis: Likely syncope due to orthostatic hypotension, vasovagal syncope, dehydration and other (Hypoglycemia) Medical Records Attestation: I reviewed the patient's medical records. Lab Data Attestation: I reviewed the patient's lab results. 05/26/25 21:31 05/26/25 21:31 Labs: Lab Results 05/26/25 05/27/25 Range/Units 21:31 00:03 WBC 6.1 (4.5-10.0) K/mm3 RBC 3.79 L (4.2-5.4) M/mm3 Hgb 12.0 (12.0-15.0) g/dL Hct 37.0 (37.0-47.0) % MCV 97.6 (80-100) fl MCH 31.7 (26-34) pg MCHC 32.4 (32-36) g/dl RDW 13.1 (11.5-14.5) % Plt Count 156 (150-375) k/mm3 MPV 10.1 (7.4-10.4) fl Immature Gran % (Auto) 0.2 (0-0.5) % Neut % (Auto) 58.8 (45.5-73.1) % Lymph % (Auto) 32.4 (18.3-44.2) % Braxton % (Auto) 6.7 (2.6-8.5) % Eos % (Auto) 1.6 (0-4.4) % Baso % (Auto) 0.3 (0.2-1.2) % Lymph # (Auto) 1.97 (0.9-3.2) K/mm3 Braxton # (Auto) 0.4 (0.1-0.6) K/mm3 Eos # (Auto) 0.1 (0-0.3) K/mm3 Baso # (Auto) 0.0 (0.0-0.1) K/mm3 Abs Immat Gran (auto) 0.01 (0.00-0.031) K/mm3 Absolute Neuts (auto) 3.6 (1.3-6.7) K/mm3 Absolute Nucleated RBC 0.000 (0.0-0.012) K/mm3 Nucleated RBC % 0.0 (0.0-0.2) % Sodium 137 (137-145) mmol/L Potassium 3.7 (3.4-5.0) mmol/L Chloride 102 (98-107) mmol/L Carbon Dioxide 28 (22-30) mmol/L Anion Gap 7 (4-12) mmol/L BUN 14 (7-17) mg/dL Creatinine 0.96 (0.7-1.0) mg/dL Estim Creat Clear Calc 46 ml/min Estimated GFR 59 (59 - ) Glucose 100 (65-110) mg/dL Calcium 8.6 (8.4-10.2) mg/dL Total Bilirubin 0.2 (0.2-1.3) mg/dL AST 29 (14-36) U/L ALT 11 (6-35) U/L Alkaline Phosphatase 61 (38-126) U/L Total Protein 6.5 (6.3-8.2) g/dL Albumin 3.9 (3.5-5.1) g/dL Urine Color Pending Urine Appearance Pending Urine pH Pending Ur Specific [place] Pending Urine Protein Pending Urine Glucose (UA) Pending Urine Ketones Pending Ur Blood (Man) Pending Urine Nitrate Pending Urine Bilirubin Pending Urine Urobilinogen Pending Leukocyte Esterase Rfl Pending ECG Data EKG #1: ECG completion date: 05/26/25 ECG completion time: 21:22 EKG Interpretation: normal rate (67), sinus rhythm, no ectopy, no ST changes and normal QRS Discharge Plan Discharge Clinical Impression: Hypoglycemia Syncope Qualifiers: Syncope type: unspecified Qualified Code(s): R55 - Syncope and collapse Patient Disposition: Home Condition: Stable Instructions: Syncope (ED), Non-diabetic Hypoglycemia (ED) Additional Instructions: eat frequent meals, follow-up with your primary doctor Patient Language: Vietnamese Prescriptions: No Action albuterol sulfate [Ventolin HFA] 90 mcg/actuation HFA aerosol inhaler 2 inh INHALATION Q4H PRN (Reason: shortness of breath or wheezing) Qty: 8.5 2RF levothyroxine 75 mcg tablet 75 mcg PO DAILY Qty: 90 0RF Follow-up/Referrals: Salvador Rodriguez MD [Primary Care Provider, [facility]] Time of Disposition: 00:42
[2025-05-27 00:40] LABS: Add Urine Microscopic? YES; Appearance Urine Cloudy (Clear); Glucose Urine UA Negative (Negative); Leukocyte Esterase Ur Negative LEU/UL (Negative); Nitrate Urine Negative (Negative); Non Pathogenic Casts 0-2; Specific Grav Ur 1.013 (1.001-1.035)
[2025-05-27 01:17] VITALS: BP 110/65; PULSE 69; RESP 15; O2SAT 100
== END 2025-05-27 01:19 | disposition home or self-care (01) ==
PROVIDERS: Student in an Organized Health Care Education/Training Program; Emergency Provider Family Medicine; PCP Family Medicine
DX: R55 Syncope and collapse (principal); E16.2 Hypoglycemia, unspecified; E03.9 Hypothyroidism, unspecified; F17.210 Nicotine dependence, cigarettes, uncomplicated; Z79.899 Other long term (current) drug therapy
CPT/HCPCS: 36415; 71045; 80053; 81001; 82948; 85025; 93005; 96360; 99284; J7030